=== PATIENT | female | born 1985 | race Caucasian/White ===

== ENCOUNTER 2018-07-11 22:32 | Emergency (ER) | payer OTHER ==
[~2018-07-11] VITALS: Ht 157.5 cm; Wt 53.2 kg
[2018-07-11 22:46] VITALS: Ht 157.5 cm; Wt 53.2 kg
[2018-07-12] MEDS ORDERED: AMITRIPTYLINE H50 MG PO (00:59)
[2018-07-12] MEDS ORDERED: VALTREX1000 MG PO (00:59)
[2018-07-12 01:37] VITALS: BP 112/74
== END 2018-07-12 01:38 | disposition home or self-care (01) ==
LOC: D.ER 22:32
DX: B02.9 Zoster without complications (principal); B02.29 Other postherpetic nervous system involvement; F17.200 Nicotine dependence, unspecified, uncomplicated

== ENCOUNTER 2018-09-06 01:28 | Emergency (ER) | payer OTHER ==
[~2018-09-06] VITALS: Ht 157.5 cm; Wt 52.3 kg
[~2018-09-06 01:28] MED LIST: AMITRIPTYLINE H50 MG PO; VALTREX1000 MG PO
[2018-09-06 01:38] VITALS: Ht 157.5 cm; Wt 52.3 kg
[2018-09-06 02:20] VITALS: BP 101/61
== END 2018-09-06 02:20 | disposition home or self-care (01) ==
LOC: D.ER 01:28
DX: S00.93XA Contusion of unspecified part of head, initial encounter (principal); W20.8XXA Other cause of strike by thrown, projected or falling object, initial encounter; Y93.89 Activity, other specified; Y92.019 Unspecified place in single-family (private) house as the place of occurrence of the external cause; F17.200 Nicotine dependence, unspecified, uncomplicated